=== PATIENT | male | born 1960 | race Hispanic/Latino ===

== ENCOUNTER 2018-09-30 11:02 | Day surgery (SDC) | payer OTHER ==
[~2018-09-30 11:02] MED LIST: DECADRON ONE; DIPRIVAN 10 MG/ML IV ONE; NEO SYNEPHRINE/NS Syringe(OR USE) IV ONE; ROBINUL ONE; SUBLIMAZE ONE; XYLOCAINE MPF 2% ONE; ZOFRAN ONE
[2018-09-30] MEDS ORDERED: LACTATED RINGERS 1,000 ML ONE (12:58)
[2018-09-30] MEDS ORDERED: DIPRIVAN 10 MG/ML IV ONE (13:30)
[2018-09-30] MEDS ORDERED: WATER FOR IRRIG STERILE IR ONE ×2 (13:39)
--- NOTE | 2018-09-30 13:43 | Anesthesia Day of Surgery ---
Anesthesia Day of Surgery - Day of Surgery Patient Examined: Yes Patient H&P Reviewed: Yes Patient is NPO: Yes
--- NOTE | 2018-09-30 13:43 | Anesthesia Consultation ---
Anesthesia Consult and Med Hx Date of service: 09/30/18 - Airway Anesthetic Teeth Evaluation: Dentures (upper and lower) ROM Head & Neck: Adequate Mental/Hyoid Distance: Adequate Mallampati Class: Class II Intubation Access Assessment: Good - Pulmonary Exam CTA: Yes - Cardiac Exam Cardiac Exam: RRR - Pre-Operative Health Status ASA Pre-Surgery Classification: ASA2 Proposed Anesthetic Plan: General - Pulmonary Hx Smoking: Yes (STOPPED X 25 YRS) Hx Sleep Apnea: No (NILESH PRE SCREEN HIGH RISK) - Cardiovascular System Hx Hypertension: No - Other Systems Hx Cancer: No - Additional Comments Anesthesia Medical History Comments: Patient has hx of blasdder stones ,has had to have a urinary catheter
[2018-09-30] MEDS ORDERED: DILAUDID IV PRN (13:45)
[2018-09-30] MEDS ORDERED: ANCEF/STERILE WATER 2 GM/20 ML IV NR (14:00)
[2018-09-30] MEDS ORDERED: LACTATED RINGERS 1,000 ML IV SCH (14:00)
--- NOTE | 2018-09-30 14:54 | Short Stay Summary ---
Short Stay Documentation Date of service: 09/30/18 - History H&P: obtained from office - Allergies and Medications Current Medications: Allergies No Known Allergies Allergy (Verified 09/22/18 12:19) Home Medications Medication Instructions Recorded Confirmed Last Taken Type Tamsulosin HCl [Flomax] 0.4 mg PO BID 09/22/18 09/30/18 09/29/18 17:00 History Multivit-Mins/Iron/Folic/Lycop 1 each PO QDAY 09/30/18 09/30/18 09/29/18 09:00 History [Centrum Men's Tablet] Active Medications Cefazolin Sodium (Ancef/Sterile Water 2 Gm/20 Ml) 2 gm IV PREOP NR Stop: 09/30/18 23:59 Hydromorphone HCl (Dilaudid) 0.25 mg IV Q10MIN PRN PRN Reason: Pain, Moderate (4-6) Lactated Ringer's (Lactated Ringers) 1,000 mls @ 75 mls/hr IV DIRECT COREY Last Admin: 09/30/18 13:00 Dose: 75 mls/hr Documented by: - Brief post op/procedure progress note Date of procedure: 09/30/18 Pre-op diagnosis: bladder stone 3cm; bph Post-op diagnosis: same Procedure: cystolitholapaxy, Findings: large stones, very large prostate median lobe Surgeon: ANETTE SCHMIDT Estimated blood loss: minimal Pathology: none Specimen disposition: given to patient/family (stones) Condition: stable - Hospital course Hospital course: [facility]pacyhome - Disposition Condition at discharge: Good Disposition: DC-01 TO HOME OR SELFCARE Short Stay Discharge Plan Activity: advance as tolerated Diet: advance as tolerated Follow up with: ANETTE SCHMIDT MD [Staff Physician] - 7 Days
[2018-09-30 15:13] VITALS: BP 133/87
--- NOTE | 2018-09-30 15:17 | XRay Report ---
Single view abdomen: History: Bladder stone Findings: In preliminary radiograph 4 cm radiopaque density overlying the region of the bladder is suggestive of a calculus within the bladder. The calculus has been removed as is noted in the delayed radiograph. Impression: Findings as detailed above.
--- NOTE | 2018-10-30 10:09 | Operative Report ---
PREOPERATIVE DIAGNOSIS: Bladder stone. POSTOPERATIVE DIAGNOSIS: Bladder stone. PROCEDURE: Cystolitholapaxy. SURGEON: Yoel Hammer MD ANESTHESIA: General. SPECIMENS: None. ESTIMATED BLOOD LOSS: Minimal. COMPLICATIONS: None. FINDINGS: Bladder stone, large prostate, BPH. CLINICAL INDICATIONS: The patient counseled [facility]BA. The patient declined resection of prostate, only wanted stone removal. Had antibiotics, SCDs. DESCRIPTION OF PROCEDURE: The patient was transferred to OR suite, in supine position, anesthesia, dorsal lithotomy, prepped and draped in standard fashion. A 22-[place] scope passed, identified the stone. There was large lateral lobe, but very large median lobe, obscuring ureteral orifice. Stone identified, holmium laser was assembled, fiber passed. We fragmented the stone into smaller pieces with the holmium fiber. This was tedious and difficult due to traditional equipment not available, which would have taken care of this stone likely in one-third of the operative time. Once the stone was fragmented into smaller pieces, some pieces were flushed out of the bladder. Bladder was irrigated as best as possible. Scope was withdrawn. The patient awakened and transferred to PACU in good and stable condition. PLAN: Staged for future treatment of prostate, possible future stone treatment. JOB# [id number] ATS/NTS
== END 2018-09-30 16:06 | disposition home or self-care (01) ==
LOC: OR 11:02
PROVIDERS: ATTEND Urology
DX: N21.0 Calculus in bladder (principal); Z79.899 Other long term (current) drug therapy; Z87.891 Personal history of nicotine dependence; Z90.49 Acquired absence of other specified parts of digestive tract; Z87.442 Personal history of urinary calculi; Z87.440 Personal history of urinary (tract) infections; Z98.890 Other specified postprocedural states
CPT/HCPCS: 52317; 74018; A4217; J0690; J1100; J2370; J2405; J2704; J3010; J7120